=== PATIENT | male | born 1980 | race African-American/Black ===

== ENCOUNTER 2016-10-13 00:35 | Emergency (ER) | payer OTHER ==
[~2016-10-13] VITALS: Ht 182.9 cm; Wt 90.7 kg
[~2016-10-13 00:35] MED LIST: HYDROCODON-ACE1 EA15 ORAL; NKM
[2016-10-13 01:00] VITALS: BP 112/73
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
[2016-10-13 01:15] VITALS: BP 112/73
== END 2016-10-13 01:15 | disposition home or self-care (01) ==
LOC: EMR 01:10
DX: S01.81XA Laceration without foreign body of other part of head, initial encounter (principal); F17.200 Nicotine dependence, unspecified, uncomplicated; Y04.8XXA Assault by other bodily force, initial encounter; Y92.9 Unspecified place or not applicable; Y99.8 Other external cause status